=== PATIENT | male | born 2000 | race Caucasian/White ===

== ENCOUNTER 2024-11-25 03:24 | Emergency (ER) | payer BC, SELFPAY ==
[2024-11-25] MEDS ORDERED: HYDROCODONE/APAP 5/325 MG TAB ONE (03:58)
[2024-11-25] MEDS ORDERED: DIAZEPAM 5 MG TABLET ONE (03:59)
--- NOTE | 2024-11-25 05:01 | EDPHYS ---
Physician Documentation [facility] Name: Osman Foster Age: 24 yrs Sex: Male : 2000 Arrival Date: 11/25/2024 Time: 03:24 Bed 5 Private MD: ED Physician Moshe Olsen HPI: 11/25 04:57 This 24 yrs old Male presents to ER via Ambulatory with complaints of Low Back Pain. ms3 04:57 24-year-old male with no past medical history presents to the emergency department for ms3 left-sided low back pain that began on while laying on his stomach. Patient states intermittently the pain radiates down the left leg. Patient denies saddle anesthesia, bowel or bladder incontinence, fevers, chills.. Historical: - Allergies: 03:42 No Known Allergies; mf3 - Immunization history:: Adult Immunizations up to date. - Infectious Disease History:: Denies. - Social history:: Smoking status: Reported history of juuling and/or vaping. Patient uses street drugs, marijuana. ROS: 04:57 Constitutional: Negative for fever, and chills. Cardiovascular: Negative for chest ms3 pain, and palpitations. Respiratory: Negative for shortness of breath, cough, wheezing, and pleuritic chest pain, Abdomen/GI: Negative for abdominal pain, nausea, vomiting, diarrhea, and constipation, 04:57 Back: Positive for Left-sided back pain, Exam: 04:57 Constitutional: This is a well developed, well nourished patient who is awake, alert, ms3 and in no acute distress. Cardiovascular: Regular rate and rhythm with a normal S1 and S2. No gallops, murmurs, or rubs. Normal PMI, no JVD. No pulse deficits. Respiratory: Lungs have equal breath sounds bilaterally, clear to auscultation and percussion. No rales, rhonchi or wheezes noted. No increased work of breathing, no retractions or nasal flaring. Abdomen/GI: Soft, non-tender, with normal bowel sounds. No distension or tympany. No guarding or rebound. No evidence of tenderness throughout. 04:57 Back: pain, that is moderate, of the left low back, muscle spasm, is appreciated in the left low back, Vital Signs: 03:39 BP 151 / 99; Pulse 72; Resp 17; Temp 98.6; Pulse Ox 99% on R/A; Weight 95.25 kg; Height mf3 5 ft. 7 in. ; Pain 5/10; 05:13 Pain 3/10; mf3 05:13 Pain 3/10; mf3 05:15 BP 139 / 78; Pulse 82; Resp 18; Temp 98.3; Pulse Ox 100% on R/A; mf3 03:39 Body Mass Index 32.89 (95.25 kg, 170.18 cm) mf3 03:39 Pain Scale: Adult mf3 05:13 Pain Scale: Adult mf3 05:13 Pain Scale: Adult mf3 MDM: 03:31 Medical Screening Exam initiated ms3 04:57 Differential diagnosis: strain, sciatica, Herniated disc. Data reviewed: vital signs, ms3 nurses notes, and as a result, I will discharge patient. I considered the following discharge prescriptions or medication management in the emergency department Medications were administered in the Emergency Department. See MAR. Counseling: I had a detailed discussion with the patient and/or guardian regarding the historical points, exam findings, and any diagnostic results supporting the discharge/admit diagnosis, the need for outpatient follow up, to return to the emergency department if symptoms worsen or persist or if there are any questions or concerns that arise at home. Special discussion: I discussed with the patient/guardian in detail that at this point there is no indication for admission to the hospital. It is understood, however, that if the symptoms persist or worsen the patient needs to return immediately for re-evaluation. ED course: On reevaluation patient states symptoms improved, patient is alert and orient x 4, no apparent distress, nontoxic-appearing, speaking full sentences, ambulatory in the emergency department. Patient to follow-up with primary care physician in 2 to 3 days. All questions were answered. Return precautions discussed include worsening symptoms, or any other concerns.. Administered Medications: 04:06 Drug: HYDROcodone-acetaminophen PO 5 mg-325 mg 1 tabs PO once Route: PO; 3 05:13 Follow up: Pain 3/10 Adult mf3 04:06 Drug: Diazepam PO 5 mg PO once Route: PO; mf3 05:13 Follow up: Pain 310 Adult; Response: No adverse reaction 3 Disposition Summary: 11/25/24 05:00 Discharge Ordered Notes: Location: Home ms3 Condition: Stable ms3 Diagnosis - Low back pain ms3 Followup: ms3 - With: Billy Rice DO - When: 2 - 3 days - Reason: Recheck today's complaints Discharge Instructions: - Discharge Summary Sheet ms3 - Acute Back Pain, Adult ms3 Forms: - Medication Reconciliation Form ms3 - Antibiotic Education ms3 - Prescription Opioid Use ms3 - Patient Portal Instructions ms3 - Leadership Thank You Letter ms3 Prescriptions: - Ibuprofen 600 mg Oral Tablet - take 1 tablet ORAL route every 6 hours As needed take with food; 30 tablet; ms3 Refills: 0, Product Selection Permitted - Cyclobenzaprine 10 mg Oral Tablet - take 1 tablet ORAL route every 8 hours As needed; 30 tablet; Refills: 0, ms3 Product Selection Permitted Signatures: Moshe Olsen DO DO ms3 Mayuri Olmos, RN RN mf3
--- NOTE | 2024-11-25 05:01 | ER ---
Nurse's Notes [facility] Name: Osman Foster Age: 24 yrs Sex: Male : 2000 Arrival Date: 11/25/2024 Time: 03:24 Bed 5 Private MD: Diagnosis: Low back pain Presentation: 11/25 03:39 Chief complaint: Patient states: Lower back pain that started two days ago that mf3 radiates to the LLE. Pt states he has taken tylenol and ibuprofen an hour prior to arrival. Coronavirus screen: Client denies travel out of the [place] in the last 14 days. At this time, the client does not indicate any symptoms associated with coronavirus-19. Ebola Screen: Patient negative for fever greater than or equal to 101.5 degrees Fahrenheit, and additional compatible Ebola Virus Disease symptoms Patient denies exposure to infectious person. Patient denies travel to an Ebola-affected area in the 21 days before illness onset. No symptoms or risks identified at this time. Initial Sepsis Screen: Does the patient meet any 2 criteria? No. Patient's initial sepsis screen is negative. Does the patient have a suspected source of infection? No. Patient's initial sepsis screen is negative. Risk Assessment: Do you want to hurt yourself or someone else? Patient reports no desire to harm self or others. Onset of symptoms was November 22, 2024. Care prior to arrival:. 03:39 Method Of Arrival: Ambulatory 3 03:39 Method Of Arrival: Ambulatory 3 03:39 Acuity: ELIZABETH 4 mf3 Triage Assessment: 03:42 General: Appears in no apparent distress. uncomfortable, Behavior is calm, cooperative, mf3 appropriate for age. Pain: Complains of pain in back Pain radiates to left leg Pain currently is 5 out of 10 on a pain scale. Pain began 2-3 days ago. EENT: No deficits noted. Neuro: Level of Consciousness is awake, alert, obeys commands, Oriented to person, place, time, situation. Cardiovascular: Patient's skin is warm and dry. Respiratory: Airway is patent Respiratory effort is even, unlabored. GI: No signs and/or symptoms were reported involving the gastrointestinal system. : No signs and/or symptoms were reported regarding the genitourinary system. Derm: No signs and/or symptoms reported regarding the dermatologic system. Musculoskeletal: Reports pain in back. Historical: - Allergies: 03:42 No Known Allergies; mf3 - Immunization history:: Adult Immunizations up to date. - Infectious Disease History:: Denies. - Social history:: Smoking status: Reported history of juuling and/or vaping. Patient uses street drugs, marijuana. Screenin:44 [facility] ED Fall Risk Assessment (Adult) History of falling in the last 3 months, mf3 including since admission No falls in past 3 months (0 pts) Confusion or Disorientation No (0 pts) Intoxicated or Sedated No (0 pts) Impaired Gait No (0 pts) Mobility Assist Device Used No (0 pt) Altered Elimination No (0 pt) Score/Fall Risk Level 0 - 2 = Low Risk Oriented to surroundings, Maintained a safe environment, Assessed \T\ reinforced patient's understanding of fall precautions, Hourly rounding (assess needs \T\ fall precautionary measures) done. Abuse screen: Denies threats or abuse. Denies injuries from another. Nutritional screening: No deficits noted. Tuberculosis screening: No symptoms or risk factors identified. Never had TB. Assessment: 03:44 Reassessment: No changes from previously documented assessment. mf3 Vital Signs: 03:39 BP 151 / 99; Pulse 72; Resp 17; Temp 98.6; Pulse Ox 99% on R/A; Weight 95.25 kg; Height mf3 5 ft. 7 in. ; Pain 5/10; 05:13 Pain 3/10; mf3 05:13 Pain 3/10; mf3 05:15 BP 139 / 78; Pulse 82; Resp 18; Temp 98.3; Pulse Ox 100% on R/A; mf3 03:39 Body Mass Index 32.89 (95.25 kg, 170.18 cm) mf3 03:39 Pain Scale: Adult mf3 05:13 Pain Scale: Adult mf3 05:13 Pain Scale: Adult 3 ED Course: 03:26 Patient arrived in ED. [email or web address] 03:31 Moshe Olsen DO is Attending Physician. ms3 03:38 Mayuri Olmos, RN is Primary Nurse. mf3 03:42 Triage completed. mf3 03:42 Arm band placed on right wrist. Patient placed in waiting room. mf3 03:44 Bed in low position. Call light in reach. Side rails up X 1. mf3 03:44 No provider procedures requiring assistance completed. 3 05:00 Billy Rice DO is Referral Physician. ms3 05:14 Provided Education on: follow up instructions. mf3 05:16 Patient did not have IV access during this emergency room visit. mf3 Administered Medications: 04:06 Drug: HYDROcodone-acetaminophen PO 5 mg-325 mg 1 tabs PO once Route: PO; mf3 05:13 Follow up: Pain 3/10 Adult mf3 04:06 Drug: Diazepam PO 5 mg PO once Route: PO; mf3 05:13 Follow up: Pain 3/10 Adult; Response: No adverse reaction mf3 Medication: 03:44 VIS not applicable for this client. 3 Outcome: 05:00 Discharge ordered by . ms3 05:14 Discharged to home ambulatory, with friend, mf3 05:14 Condition: stable 05:14 Discharge instructions given to patient, friend, Instructed on discharge instructions, follow up and referral plans. Demonstrated understanding of instructions, follow-up care, Prescriptions given X 05:17 Patient left the ED. 3 Signatures: Moshe Olsen DO DO ms3 Hailee Hutson [email or web address] Mayuri Olmos, RN RN mf3
[2024-11-25 11:50] VITALS: BP 139/78; TEMP 98.3; O2SAT 100
== END 2024-11-25 05:17 | disposition home or self-care (01) ==
LOC: ER 03:24
DX: M54.50 Low back pain, unspecified (principal)
CPT/HCPCS: 99283